=== PATIENT | female | born 1950 | race American Indian/Alaskan Native ===

== ENCOUNTER 2016-08-27 07:55 | Day surgery (SDC) | payer OTHER ==
--- NOTE | 2016-08-27 08:50 | Anesthesia Consultation ---
Anesthesia Consult and Med Hx Date of service: 08/27/16 - Airway Anesthetic Teeth Evaluation: Dentures (upper and lower) ROM Head & Neck: Adequate Mental/Hyoid Distance: Adequate Mallampati Class: Class III Intubation Access Assessment: Possibly Difficult - Pre-Operative Health Status ASA Pre-Surgery Classification: ASA3 Proposed Anesthetic Plan: MAC - Pulmonary Hx Smoking: Yes (former smoker) - Cardiovascular System Hx Hypertension: Yes Hx Coronary Artery Disease: No (high cholesterol) - Gastrointestinal Hx Gastroesophageal Reflux Disease: Yes (dysphagea, N/V, acid reflux) - Endocrine Hx Non-Insulin Dependent Diabetes: Yes - Other Systems Hx Obesity: Yes
--- NOTE | 2016-08-27 08:54 | Anesthesia Day of Surgery ---
Anesthesia Day of Surgery - Day of Surgery Patient Examined: Yes Patient H&P Reviewed: Yes Patient is NPO: Yes
[2016-08-27] MEDS ORDERED: NACL 0.9% 1000 ML 1,000 ML IV SCH (09:00)
[2016-08-27] MEDS ORDERED: WATER FOR IRRIG STERILE IR ONE (13:11)
[2016-08-27] MEDS ORDERED: DIPRIVAN 10 MG/ML IV ONE ×2 (13:35)
[2016-08-27] MEDS ORDERED: XYLOCAINE MPF 2% ONE (13:42)
--- NOTE | 2016-08-27 14:03 | Operative Report ---
Operative Report Operative Report: Date of procedure: 08/27/2016 Procedure: Esophagogastroduodenoscopy with multiple mucosal biopsies. Attending physician: Lawrence Bear MD Planning Specialist: Lawrence Bear MD Indication: 66-year-old female who presented with a history of recurrent epigastric pain had been and indigestion. Patient also has a history of anorexia and weight loss. An upper endoscopy is done to assess patient regarding the course of symptoms so that treatment may be directed based on the findings. Consent: Informed consent was obtained after advising the patient and family regarding nature of this procedure, its indications, potential benefits as well as possible complications including but not limited to bleeding perforation and adverse reaction to medication, infection as well as other cardiopulmonary complications. An informed written and verbal consent was then obtained after due opportunity was provided for questions and answers. Monitoring: Patient was monitored continuously with pulse oximetry and electrocardiographic recordings as well as blood pressure recordings. Vital signs remained stable throughout this procedure with no untoward events. Preoperative assessment: Patient was assessed immediately prior to this procedure for capacity to tolerate monitored anesthesia care and moderate sedation as well as general anesthesia. Patient's ASA classification is 3, Mallampati class is 2, Hyomental distance is 3. Instrument: [employer]lytics video endoscope Medications: Propofol given intravenously in divided doses for details please refer to anesthesia records. Description of procedure: Patient was placed in the left lateral decubitus position after achieving sedation, the endoscope was introduced into the esophagus under direct vision. It was then advanced beyond the esophagus into the stomach and then beyond the stomach into the duodenum and to the second portion of the duodenum. It was subsequently withdrawn with careful inspection of all mucosal surfaces with the following findings. Findings: Esophagus was normal. There was a 2-3 cm sliding hiatal hernia seen on entering to the stomach. There was erythema in the gastric antrum. Biopsies of the antrum were obtained to rule out gastritis. The duodenum was normal to second portion. Impression: Hiatal hernia. Gastric antral erythema. Plan: Follow pathology report and direct additional treatment based on the pathology report. Patient will also require colonoscopy to be done in the near future. Additional steps will be taken in follow-up.
--- NOTE | 2016-08-27 14:09 | Discharge Summary ---
Short Stay Discharge Plan Activity: advance as tolerated Weight Bearing Status: Weight Bear as Tolerated Diet: regular
--- NOTE | 2016-08-27 14:10 | Post Anesthesia Evaluation ---
- Post Anesthesia Evaluation Airway Patent: Yes Stable Respiratory Function: Yes Nausea/Vomiting: No Temp > 96.8F: Yes Pain Manageable: Yes Adequeate Hydration: Yes Block Receding Appropriately: Not Applicable Patient on Ventilator: No
[2016-08-27 14:14] VITALS: BP 145/76
== END 2016-08-27 07:56 | disposition home or self-care (01) ==
LOC: GIO 07:55
PROVIDERS: ATTEND Internal Medicine Gastroenterology
DX: K29.50 Unspecified chronic gastritis without bleeding (principal); K44.9 Diaphragmatic hernia without obstruction or gangrene; I10 Essential (primary) hypertension; K21.9 Gastro-esophageal reflux disease without esophagitis; E11.9 Type 2 diabetes mellitus without complications; M19.90 Unspecified osteoarthritis, unspecified site; B19.20 Unspecified viral hepatitis C without hepatic coma; E66.9 Obesity, unspecified; Z68.41 Body mass index [BMI] 40.0-44.9, adult; Z87.891 Personal history of nicotine dependence; Z79.84 Long term (current) use of oral hypoglycemic drugs; Z79.899 Other long term (current) drug therapy; Z83.3 Family history of diabetes mellitus; Z83.1 Family history of other infectious and parasitic diseases; Z82.49 Family history of ischemic heart disease and other diseases of the circulatory system
CPT/HCPCS: 43239; 82962; 88305; 88342; J2704; J7030

== ENCOUNTER 2016-09-10 07:35 | Day surgery (SDC) | payer OTHER ==
[2016-09-10] MEDS ORDERED: WATER FOR IRRIG STERILE IR ONE (08:46)
[2016-09-10] MEDS ORDERED: DIPRIVAN 10 MG/ML IV ONE ×2 (09:00)
--- NOTE | 2016-09-10 09:02 | Anesthesia Day of Surgery ---
Anesthesia Day of Surgery - Day of Surgery Patient Examined: Yes Patient H&P Reviewed: Yes Patient is NPO: Yes
--- NOTE | 2016-09-10 09:02 | Anesthesia Consultation ---
Anesthesia Consult and Med Hx Date of service: 09/10/16 - Airway Anesthetic Teeth Evaluation: Dentures (upper and lower) ROM Head & Neck: Adequate Mental/Hyoid Distance: Adequate Mallampati Class: Class II Intubation Access Assessment: Probably Good - Pulmonary Exam CTA: Yes - Cardiac Exam Cardiac Exam: RRR - Pre-Operative Health Status ASA Pre-Surgery Classification: ASA3 Proposed Anesthetic Plan: MAC - Pulmonary Hx Smoking: Yes (former smoker, quit >30 years ago) Hx Sleep Apnea: No - Cardiovascular System Hx Hypertension: Yes Hx Coronary Artery Disease: No (high cholesterol) - Gastrointestinal Hx Gastroesophageal Reflux Disease: Yes (dysphagea, N/V, acid reflux) - Endocrine Hx Liver Disease: No (HEP C, liver values normal) Hx Non-Insulin Dependent Diabetes: Yes - Hematic Hx Anemia: No Hx Sickle Cell Disease: No - Other Systems Hx Alcohol Use: No Hx Substance Use: No Hx Cancer: No Hx Obesity: Yes
[2016-09-10] MEDS ORDERED: NACL 0.9% 1000 ML 1,000 ML IV SCH (10:00)
--- NOTE | 2016-09-10 10:15 | History and Physical Report ---
History of Present Illness Date of examination: 09/10/16 Date of admission: 09/10/2016 Chief complaint: Colorectal cancer screening History of present illness: Patient is a 66-year-old female who was referred for colorectal cancer screening denies any complaints. Past History Past Medical History: diabetes, hypertension, hyperlipidemia Past Surgical History: hysterectomy, Other (eye surgery) Social history: denies: smoking, alcohol abuse Medications and Allergies Allergies Allergy/AdvReac Type Severity Reaction Status Date / Time No Known Allergies Allergy Verified 09/10/16 08:55 Home Medications Medication Instructions Recorded Confirmed Last Taken Type Gabapentin [Gabapentin] 08/24/16 08/26/16 History Losartan-Hctz 100-25 mg Tab 100 mg PO DAILY 08/24/16 09/10/16 09/10/16 History Metformin HCl ER 08/24/16 08/26/16 History Omeprazole (Nf) [PriLOSEC (Nf)] 08/24/16 08/26/16 History Ondansetron [Zofran TAB] 08/24/16 08/26/16 History Pravastatin 40 mg PO DAILY 08/24/16 09/10/16 09/09/16 History glipiZIDE [Glipizide] 5 mg PO DAILY 08/24/16 09/10/16 09/08/16 History hydrALAZINE [Apresoline TAB] 08/24/16 08/26/16 History Active Meds: Active Medications Sodium Chloride (Nacl 0.9% 1000 Ml) 1,000 mls @ 50 mls/hr IV DIRECT GAIL Last Admin: 09/10/16 09:24 Dose: 50 mls/hr Review of Systems All systems: negative Exam - Constitutional Vitals: Temp Pulse Resp BP Pulse Ox 98.2 F 80 19 137/68 99 09/10/16 09:09 09/10/16 09:09 09/10/16 09:09 09/10/16 09:09 09/10/16 09:09 General appearance: Present: no acute distress, well-nourished - EENT Eyes: Present: PERRL ENT: hearing intact, clear oral mucosa - Neck Neck: Present: supple, normal ROM - Respiratory Respiratory effort: normal Respiratory: bilateral: CTA - Cardiovascular Heart Sounds: Present: S1 & S2. Absent: rub, click - Extremities Extremities: pulses symmetrical, No edema Peripheral Pulses: within normal limits - Abdominal General gastrointestinal: Present: soft, non-tender, non-distended, normal bowel sounds Female genitourinary: Present: normal - Integumentary Integumentary: Present: clear, warm, dry - Musculoskeletal Musculoskeletal: gait normal, strength equal bilaterally - Psychiatric Psychiatric: appropriate mood/affect, intact judgment & insight - Neurologic Neurologic: CNII-XII intact, moves all extremities Results - Labs Labs: Abnormal lab results 09/10/16 Range/Units 08:40 POC Glucose 108 H (70-105) Assessment and Plan Colorectal cancer screening. Plan: Colonoscopy.
[2016-09-10] MEDS ORDERED: XYLOCAINE MPF 2% ONE (10:24)
--- NOTE | 2016-09-10 10:51 | Operative Report ---
Operative Report Operative Report: Date of procedure: 09/10/2016 Procedure: Colonoscopy to the ascending colon Attending physician: Lawrence Bear MD Architectural Intern: Lawrence Bear MD Indication: Colorectal cancer screening Consent: Informed consent was obtained after advising the patient and family regarding nature of this procedure, its indications, potential benefits as well as possible complications including but not limited to bleeding perforation and adverse reaction to medication, infection as well as other cardiopulmonary complications. An informed written and verbal consent was then obtained after due opportunity was provided for questions and answers. Monitoring: Patient was monitored continuously with pulse oximetry and electrocardiographic recordings as well as blood pressure recordings. Vital signs remained stable throughout this procedure with no untoward events. Preoperative assessment: Patient was assessed immediately prior to this procedure for capacity to tolerate monitored anesthesia care and moderate sedation as well as general anesthesia. Patient's ASA classification is 2, Mallampati class is 2, Hyomental distance is 3. Instrument: [employer] videocolonoscope Medications: Propofol given intravenously in divided doses. For details please refer to anesthesia records. Description of procedure: Patient was placed in the left lateral decubitus position after achieving sedation, a digital rectal examination was performed following which the colonoscope was introduced into the anal verge and advanced to the ascending colon. There was incremental stool density and poor visualization of the colon. The colonoscope was therefore withdrawn with careful inspection of all mucosal surfaces. Patient tolerated this procedure well and was subsequently taken to the recovery room. The following findings were noted. Findings: There was extensive diverticulosis of the sigmoid, descending colon and much less so the ascending colon. There was substantial retained stool seen in various segments of the colon precluding adequate visualization of the underlying colonic mucosa. This was stained with advancement of the colonoscope and made it very difficult to irrigate the colon. On the retroflex view at the anal verge patient had internal hemorrhoids. Impression: Poor colonoscopic preparation Extensive diverticulosis of the colon Internal hemorrhoids. Plan: Reschedule colonoscopy.
--- NOTE | 2016-09-10 10:52 | Discharge Summary ---
Short Stay Discharge Plan Activity: advance as tolerated Weight Bearing Status: Weight Bear as Tolerated Diet: regular (Reschedule colonoscopy)
[2016-09-10 11:17] VITALS: BP 159/80
--- NOTE | 2016-09-10 12:40 | Post Anesthesia Evaluation ---
- Post Anesthesia Evaluation Patient Participated: Yes Airway Patent: Yes Stable Respiratory Function: Yes Nausea/Vomiting: No Temp > 96.8F: Yes Pain Manageable: Yes Adequeate Hydration: Yes Anesthesia Complications: No Block Receding Appropriately: Not Applicable Patient on Ventilator: No
== END 2016-09-10 07:36 | disposition home or self-care (01) ==
LOC: GIO 07:35
PROVIDERS: ATTEND Internal Medicine Gastroenterology
DX: Z12.11 Encounter for screening for malignant neoplasm of colon (principal); K57.30 Diverticulosis of large intestine without perforation or abscess without bleeding; K64.8 Other hemorrhoids; E11.9 Type 2 diabetes mellitus without complications; I10 Essential (primary) hypertension; E78.5 Hyperlipidemia, unspecified; E66.9 Obesity, unspecified; Z68.41 Body mass index [BMI] 40.0-44.9, adult; Z90.710 Acquired absence of both cervix and uterus; Z98.890 Other specified postprocedural states; Z87.891 Personal history of nicotine dependence
CPT/HCPCS: 82962; G0121; J2704; J7030

== ENCOUNTER 2016-09-27 10:47 | Day surgery (SDC) | payer OTHER ==
[2016-09-27] MEDS ORDERED: NACL 0.9% 1000 ML 1,000 ML IV SCH (13:00)
[2016-09-27] MEDS ORDERED: DIPRIVAN 10 MG/ML IV ONE ×5 (14:14→15:28)
[2016-09-27] MEDS ORDERED: WATER FOR IRRIG STERILE ONE (15:55)
--- NOTE | 2016-09-27 16:43 | Operative Report ---
Operative Report Operative Report: Date of procedure: 09/27/2016 Procedure: Colonoscopy with multiple hot biopsy polypectomies.. Attending physician: Lawrence Bear MD Steel Analyst: Lawrence Bear MD Indication: Patient is a 66 year-old female who presents for screening colonoscopy. A colonoscopy is done to evaluate patients for colorectal cancer screening. Consent: Informed consent was obtained after advising the patient and family regarding nature of this procedure, its indications, potential benefits as well as possible complications including but not limited to bleeding perforation and adverse reaction to medication, infection as well as other cardiopulmonary complications. An informed written and verbal consent was then obtained after due opportunity was provided for questions and answers. Monitoring: Patient was monitored continuously with pulse oximetry and electrocardiographic recordings as well as blood pressure recordings. Vital signs remained stable throughout this procedure with no untoward events. Preoperative assessment: Patient was assessed immediately prior to this procedure for capacity to tolerate monitored anesthesia care and moderate sedation as well as general anesthesia. Patient's ASA classification is 2, Mallampati class is 2, Hyomental distance is 3. Instrument: [employer]inon videocolonoscope Medications: Propofol given intravenously in divided doses. For details please refer to anesthesia records. Description of procedure: Patient was placed in the left lateral decubitus position after achieving sedation, a digital rectal examination was performed following which the colonoscope was introduced into the anal verge and advanced to the cecum which was identified by the cecal valve, the appendiceal orifice, as well as by the cecal strap and direct transillumination. The colonoscope was subsequently withdrawn with careful inspection of all mucosal surfaces. Patient tolerated this procedure well and was subsequently taken to the recovery room. The following findings were noted. Findings: Patient had a diminutive polyp in the cecum which were removed by hot biopsy polypectomy. There was a another polyp in the descending colon that was removed by hot biopsy polypectomy. The polyps measured approximately 6 mm each. There was pancolonic diverticulosis with involvement of all segments of the colon.. The rest of the colon to the cecum was normal. On the retroflex view at the anal verge, patient had internal hemorrhoids. Impression: Multiple diminutive colon polyps status post hot biopsy polypectomy. Diverticulosis. Internal hemorrhoids. Plan: Follow pathology report. High-fiber diet. Repeat colonoscopy in 5 years.
--- NOTE | 2016-09-27 16:44 | Discharge Summary ---
Short Stay Discharge Plan Activity: advance as tolerated Weight Bearing Status: Weight Bear as Tolerated Diet: regular
[2016-09-27 18:44] VITALS: BP 155/69
--- NOTE | 2016-09-28 01:53 | Anesthesia Consultation ---
Anesthesia Consult and Med Hx Date of service: 09/28/16 - Airway Anesthetic Teeth Evaluation: Dentures ROM Head & Neck: Adequate Mental/Hyoid Distance: Adequate Mallampati Class: Class II Intubation Access Assessment: Probably Good - Pulmonary Exam CTA: Yes - Cardiac Exam Cardiac Exam: RRR - Pre-Operative Health Status ASA Pre-Surgery Classification: ASA3 Proposed Anesthetic Plan: MAC - Pulmonary Hx Smoking: Yes (former smoker, quit >30 years ago) Hx Sleep Apnea: No - Cardiovascular System Hx Hypertension: Yes Hx Coronary Artery Disease: No (high cholesterol) - Gastrointestinal Hx Gastroesophageal Reflux Disease: Yes (dysphagea, N/V, acid reflux) - Endocrine Hx Liver Disease: No (HEP C, liver values normal) Hx Non-Insulin Dependent Diabetes: Yes - Hematic Hx Anemia: No Hx Sickle Cell Disease: No - Other Systems Hx Alcohol Use: No Hx Substance Use: No Hx Cancer: No Hx Obesity: Yes
--- NOTE | 2016-09-28 01:54 | Anesthesia Day of Surgery ---
Anesthesia Day of Surgery - Day of Surgery Patient Examined: Yes Patient H&P Reviewed: Yes Patient is NPO: Yes
== END 2016-09-27 10:48 | disposition home or self-care (01) ==
LOC: GIO 10:47
PROVIDERS: ATTEND Internal Medicine Gastroenterology
DX: Z12.11 Encounter for screening for malignant neoplasm of colon (principal); K63.5 Polyp of colon; K57.30 Diverticulosis of large intestine without perforation or abscess without bleeding; K64.8 Other hemorrhoids; M19.90 Unspecified osteoarthritis, unspecified site; E11.9 Type 2 diabetes mellitus without complications; I10 Essential (primary) hypertension; K21.9 Gastro-esophageal reflux disease without esophagitis; E66.9 Obesity, unspecified; Z68.41 Body mass index [BMI] 40.0-44.9, adult; Z90.710 Acquired absence of both cervix and uterus; Z79.899 Other long term (current) drug therapy; Z79.84 Long term (current) use of oral hypoglycemic drugs; Z87.891 Personal history of nicotine dependence; Z82.49 Family history of ischemic heart disease and other diseases of the circulatory system; Z83.3 Family history of diabetes mellitus; Z83.79 Family history of other diseases of the digestive system; Z83.49 Family history of other endocrine, nutritional and metabolic diseases
CPT/HCPCS: 45384; 88305; J2704; J7030